=== PATIENT | female | born 1945 | race Asian ===

== ENCOUNTER 2017-09-03 06:07 | Emergency (ER) | payer OTHER ==
[2017-09-03] MEDS: ACETAMINOPHEN 325 MG TAB PO (08:06)
== END 2017-09-03 09:35 | disposition home or self-care (01) ==
LOC: FTE 06:07
DX: M48.56XA Collapsed vertebra, not elsewhere classified, lumbar region, initial encounter for fracture (principal); Z79.82 Long term (current) use of aspirin
CPT/HCPCS: 72131; 72192; 99285-25

== ENCOUNTER 2017-09-08 21:19 | Emergency (ER) | payer OTHER ==
[2017-09-08 22:57] LABS: ADD MAN DIFF? NO
[2017-09-08] MEDS: morphine 2 MG INJ IV (22:58)
[2017-09-08] MEDS: SOD CHLORIDE 0.9% 1,000 ML IV (22:58)
[2017-09-08] MEDS: ONDANSETRON 4 MG INJ IV (22:59)
[2017-09-08 23:00] LABS: BASOPHIL # 0.1 10^3/ul (0.0-0.1); BASOPHILS % 0.7 % (0.0-2.0); EOSINOPHILS # 0.1 10^3/ul (0.0-0.5); HEMATOCRIT 37.5 % (37.0-47.0); HEMOGLOBIN 12.3 g/dl (12.0-16.0); LYMPHOCYTES # 1.5 10^3/ul (0.8-2.9); LYMPHOCYTES % 18.3 % (15.0-51.0); MEAN CORPUSCULAR HEMOGLOBIN 31.7 pg (29.0-33.0); MEAN CORPUSCULAR HGB CONC 32.8 g/dl (32.0-37.0); MEAN CORPUSCULAR VOLUME 96.6 fl (82.0-101.0); MEAN PLATELET VOLUME 10.2 fl (7.4-10.4); MONOCYTE # 0.8 10^3/ul (0.3-0.9); MONOCYTES % 9.5 % (0.0-11.0); NEUTROPHIL # 5.7 10^3/ul (1.6-7.5); NEUTROPHILS % 69.3 % (39.0-77.0); PLATELET COUNT 215 10^3/UL (140-415); RED BLOOD COUNT 3.88 10^6/ul (4.20-5.40); RED CELL DISTRIBUTION WIDTH 14.2 % (11.5-14.5)
[2017-09-08 23:00] LABS: WHITE BLOOD COUNT 8.2 10^3/ul (4.8-10.8)
[2017-09-08 23:18] LABS: LACTIC ACID 1.5 mmol/L (0.5-2.0)
[2017-09-08 23:21] LABS: ALANINE AMINOTRANSFERASE 16 IU/L (13-69); ALBUMIN 3.8 g/dl (3.3-4.9); ALKALINE PHOSPHATASE 74 IU/L (42-121); ANION GAP 14 (8-16); ASPARTATE AMINO TRANSFERASE 27 IU/L (15-46); BILIRUBIN,INDIRECT 1.2 mg/dl (0-1.1); BILIRUBIN,TOTAL 1.2 mg/dl (0.2-1.3); BLOOD UREA NITROGEN 31 mg/dl (7-20); CALCIUM 8.8 mg/dl (8.4-10.2); CARBON DIOXIDE 26 mmol/L (21-31); CHLORIDE 102 mmol/L (97-110); CREATININE 1.17 mg/dl (0.44-1.00); GLUCOSE 109 mg/dl (70-220); LIPASE 156 U/L (23-300); POTASSIUM 4.5 mmol/L (3.5-5.1); SODIUM 137 mmol/L (135-144); TOTAL PROTEIN 7.6 g/dl (6.1-8.1)
[2017-09-08 23:32] LABS: TROPONIN-I 0.031 ng/ml (0.00-0.12)
[2017-09-08 23:45] LABS: URINE PH (Dip) POC 5.5 (5.0-8.5)
[2017-09-08 23:45] LABS: URINE BLOOD (Dip) POC Trace-lysed (NEGATIVE); URINE GLUCOSE (Dip) POC Negative (NEGATIVE); URINE KETONES (Dip) POC Negative (NEGATIVE); URINE LEUKOCYTE EST (Dip) POC Negative (NEGATIVE); URINE NITRITE (Dip) POC Negative (NEGATIVE); URINE TOTAL PROTEIN POC 1+ (NEGATIVE)
[2017-09-08] MEDS: HYDROmorphONE 0.5 MG/0.5 ML SYG IV (23:56)
[2017-09-08] MEDS: METOPROLOL 5 MG INJ IV (23:56)
[2017-09-09 00:07] LABS: ADD UMIC YES; UR ASCORBIC ACID NEGATIVE (NEGATIVE); UR BILIRUBIN (Dip) NEGATIVE (NEGATIVE); UR BLOOD (Dip) 1+ mg/dL (NEGATIVE); UR CLARITY CLEAR (CLEAR); UR COLOR YELLOW (YELLOW); UR GLUCOSE (Dip) NEGATIVE (NEGATIVE); UR KETONES (Dip) NEGATIVE (NEGATIVE); UR LEUKOCYTE ESTERASE (Dip) NEGATIVE Leu/ul (NEGATIVE); UR NITRITE (Dip) NEGATIVE (NEGATIVE); UR RBC 1 /HPF (0-5); UR SPECIFIC GRAVITY (Dip) 1.021 (1.003-1.030); UR TOTAL PROTEIN (Dip) 1+ mg/dl (NEGATIVE); UR UROBILINOGEN (Dip) NEGATIVE (NEGATIVE); UR WBC 0 /HPF (0-5)
[2017-09-09 00:43] LABS: INR 1.76; PROTIME 20.9 Sec (11.9-14.9); PT RATIO 1.6
[2017-09-09 00:44] LABS: PARTIAL THROMBOPLASTIN TIME 40.4 Sec (25.0-35.0)
[2017-09-09 00:47] LABS: B-TYPE NATRIURETIC PEPTIDE 6460 PG/ML (0-125)
[2017-09-09] MEDS: HYDROmorphONE 0.5 MG/0.5 ML SYG IV (02:57)
[2017-09-09] MEDS: FUROSEMIDE 20 MG INJ IV (03:12)
== END 2017-09-09 04:59 | disposition short-term general hospital (02) ==
LOC: E/R 21:19
DX: I48.91 Unspecified atrial fibrillation (principal); I50.9 Heart failure, unspecified; N28.9 Disorder of kidney and ureter, unspecified; R53.1 Weakness; Z79.82 Long term (current) use of aspirin
CPT/HCPCS: 36415; 71045; 80053; 81001; 81003; 83605; 83690; 83880; 84484; 85025; 85610; 85730; 93005; 96374; 96375; 96376; 99291-25